=== PATIENT | female | born 1990 | race Caucasian/White ===

== ENCOUNTER → 2020-03-08 | Outpatient (CLI) | payer BC ==
--- NOTE | 2020-03-08 11:00 | Diagnostic Imaging Report ---
INDICATION: survey, patient TECHNIQUE: Multiple real-time grayscale images were obtained over the gravid uterus. COMPARISON: None FINDINGS: A single live intrauterine fetus seen measuring 21 weeks 1 day in size by composite measurements. The fetus is in cephalic presentation. Amniotic fluid index is 9.96 cm. Placenta is posterior and grade 1 with no evidence of previa. heart rate is 143 bpm. survey showed normal-appearing kidneys and bladder and stomach. Normal-appearing intracranial ventricles are seen. Three-vessel cord and cord insertion appear unremarkable. The spine appears unremarkable. Views of the nose and lips and four-chamber heart were suboptimal due to position. Maternal adnexa could not be visualized. There was no free fluid. Biometrical measurements are as follows: Biparietal 5.03 cm, age 21 weeks 2 days. Head circumference 18.04 cm, age 20 weeks 4 days. Abdominal circumference 16.49 cm, age 21 weeks 4 days. Femur length 3.39 cm, age 20 weeks 5 days. Sonographic estimate age: 21 weeks 1 days. Sonographic estimated date of delivery: 07/18/2020. Estimated Weight: 397 gm (+/- 58 gm). LMP percentile: 57%. heart rate: 143 beats per minute. number: 1 of 1. IMPRESSION: Single live intrauterine fetus measuring 21 weeks 1 day in size. survey showed no technical abnormalities with supplementation as above. Consider limited followup as clinically warranted. Dictated by: Dictated on workstation # [id number]
== END ==
LOC: RAD 09:47
PROVIDERS: ATTEND Obstetrics & Gynecology
DX: Z36.89 Encounter for other specified antenatal screening (principal); Z3A.21 21 weeks gestation of pregnancy
CPT/HCPCS: 76805

== ENCOUNTER → 2020-05-04 | Outpatient (CLI) | payer BC ==
--- NOTE | 2020-05-04 16:58 | Diagnostic Imaging Report ---
INDICATION: , incomplete earlier anatomic survey. TECHNIQUE: Multiple real-time grayscale images were obtained over the gravid uterus. COMPARISON: 03/08/2020. FINDINGS: Four-chamber heart and facial structures are well visualized and appear unremarkable. Cephalic positioning of the jean-baptiste viable IUP is redemonstrated. The placenta is posterior fundal with no abruption or previa. heart rate 134 bpm. Amniotic fluid volume normal. IMPRESSION: Successful completion of the prior limited anatomical survey. No abnormality identified. Dictated by: Dictated on workstation # [id number]
== END ==
LOC: RAD 11:35
PROVIDERS: ATTEND Nurse Practitioner Women's Health
DX: Z34.90 Encounter for supervision of normal pregnancy, unspecified, unspecified trimester (principal); Z3A.00 Weeks of gestation of pregnancy not specified
CPT/HCPCS: 76816

== ENCOUNTER → 2020-06-29 | Outpatient (CLI) | payer BC ==
--- NOTE | 2020-06-29 08:38 | Diagnostic Imaging Report ---
INDICATION: Gestational hypertension. FINDINGS: There is single live intrauterine fetus which is vertex. Fetus is active. breathing and motion was normal. Amniotic fluid index is normal at 11 cm. heart rate 133. IMPRESSION: Normal biophysical profile scoring 8 of potential 8 points by ultrasound. Dictated by: Dictated on workstation # [id number]
== END ==
LOC: RAD 07:50
PROVIDERS: ATTEND Nurse Practitioner Women's Health
DX: O13.9 Gestational [pregnancy-induced] hypertension without significant proteinuria, unspecified trimester (principal)
CPT/HCPCS: 76819

== ENCOUNTER → 2020-07-05 | Outpatient (CLI) | payer BC ==
--- NOTE | 2020-07-05 15:23 | Diagnostic Imaging Report ---
INDICATION: Gestational hypertension. TECHNIQUE: Multiple real-time grayscale images were obtained over the gravid uterus. COMPARISON: 06/29/2020. FINDINGS: There is a single live fetus in a cephalic presentation. heart rate was recorded 135 bpm. Placenta is posterior. Amniotic fluid index is 11.2 cm. Biophysical profile was performed with a score of 6/8. Two-point reduction was given for lack of breathing movements visualized. Biometrical measurements are as follows: Biparietal 8.74 cm, age 35 weeks 3 days. Head circumference 33.49 cm, age 38 weeks 3 days. Abdominal circumference 34.10 cm, age 38 weeks 1 days. Femur length 7.41 cm, age 38 weeks 0 days. Sonographic estimate age: 37 weeks 4 days. Sonographic estimated date of delivery: 07/22/2020. Estimated Weight: 3278 gm (+/- 479 gm). LMP percentile: 57%. heart rate: 135 beats per minute. number: 1 of 1. IMPRESSION: 1. Single live IUP approximately 37-38 weeks gestational age. 2. Biophysical profile score 6/8. Dictated by: Dictated on workstation # [id number]
== END ==
LOC: RAD 12:18
PROVIDERS: ATTEND Nurse Practitioner Women's Health
DX: O13.3 Gestational [pregnancy-induced] hypertension without significant proteinuria, third trimester (principal); Z3A.37 37 weeks gestation of pregnancy
CPT/HCPCS: 76805; 76819

== ENCOUNTER 2020-07-06 12:29 | Outpatient (CLI) | payer BC ==
--- NOTE | 2020-07-06 14:05 | NUR ---
TESSA GOMEZ presented to unit via from RADIOLOGY, FOR NST. EFHM and TOCO applied, VS taken. TESSA GOMEZ oriented to bed controls, call light, TV, heat, and A/C controls.
[2020-07-06 14:28] VITALS: BP 135/87
--- NOTE | 2020-07-06 14:35 | NUR ---
RN CALLS DR GHOSH WITH NST RESULT: REACTIVE, MODERATE VARIABILITY, NO DECELS OR VARIABLES. UC Q8 MIN WHICH THE PT DOES NOT REPORT FEELING. BPP WAS 6/8. BP 135/87 HR 75 TEMP 98.6F. FEELING GOOD MOVEMENT. NO COMPLAINTS. DR SANTILLAN STATES THAT PT MAY DC HOME AND TO FOLLOW UP ON THURSDAY WITH DR SIMON AT HER PREVIOUSLY SCHEDULED APPOINTMENT. THIS RN INFORMS PT AND IS DC TO HOME.
--- NOTE | 2020-07-06 14:38 | Diagnostic Imaging Report ---
INDICATION: Gestational hypertension. There is a single live fetus in a cephalic presentation. heart rate was recorded at 138 bpm. Amniotic fluid index is 11.9 cm. Biophysical profile score is 6 out of 8. A 2 point deduction was given for lack of breathing movements visualized. IMPRESSION: Biophysical profile score 6 out of 8. Dictated by: Dictated on workstation # [id number]
== END 2020-07-06 14:35 | disposition home or self-care (01) ==
LOC: RAD 12:29
PROVIDERS: ATTEND Nurse Practitioner Women's Health
DX: O13.3 Gestational [pregnancy-induced] hypertension without significant proteinuria, third trimester (principal); Z3A.00 Weeks of gestation of pregnancy not specified
CPT/HCPCS: 76819; 82570; 84156

== ENCOUNTER 2020-07-08 08:45 | Inpatient (IN) | payer BC ==
[~2020-07-08] VITALS: Ht 177.5 cm; Wt 97.0 kg
[2020-07-08] VITALS (17 sets, daily range): BP systolic 105–174; BP diastolic 59–110
--- NOTE | 2020-07-08 08:50 | NUR ---
TESSA GOMEZ presented to unit via amb from home, accompanied by s.o., with c/o LABOR. TESSA GOMEZ weighed, gowned, voided, and to bed. 0900 EFHM and TOCO applied, VS taken. TESSA GOMEZ oriented to bed controls, call light, TV, heat, and A/C controls.
[2020-07-08] MEDS ORDERED: D5 LR IV SOLUTION 1,000 ML IV ONE (09:07)
[2020-07-08] MEDS ORDERED: D5 LR IV SOLUTION 1,000 ML IV SCH (09:14)
[2020-07-08] MEDS ORDERED: OXYTOCIN PRE-MIX DRIP 500 ML IV ONE (09:25)
[2020-07-08] MEDS ORDERED: LIDOCAINE/EPI 2% 1:200,00 (XYLOCAINE) 10 ML VIAL ONE ×2 (09:25→09:43)
--- OUTSIDE RECORDS SUMMARY | 2020-07-08 10:05 | XMS REPORT | Continuity of Care Document ---
Author Organization Unknown Address Unknown Phone Unavailable Allergies There is no data. Medications There is no data. Problems Date Dx Coded Attending Type Code Diagnosis Diagnosed By 03/12/2020 SIMON DO, ALPESH C Ot Z36.8 9 ENCOUNTER FOR OTHER SPECIFIED 03/12/2020 SIMON DO, ALPESH C Ot Z3A.2 1 21 WEEKS GESTATION OF 03/14/2020 SIMON DO, ALPESH C Ot Z36.8 9 ENCOUNTER FOR OTHER SPECIFIED 03/14/2020 SIMON DO, ALPESH C Ot Z3A.2 1 21 WEEKS GESTATION OF 03/19/2020 SIMON DO, ALPESH C Ot Z36.8 9 ENCOUNTER FOR OTHER SPECIFIED 03/19/2020 SIMON DO, ALPESH C Ot Z3A.2 1 21 WEEKS GESTATION OF 03/20/2020 SIMON DO, ALPESH C Ot Z36.8 9 ENCOUNTER FOR OTHER SPECIFIED 03/20/2020 SIMON DO, ALPESH C Ot Z3A.2 1 21 WEEKS GESTATION OF 03/24/2020 SIMON DO, ALPESH C Ot Z36.8 9 ENCOUNTER FOR OTHER SPECIFIED 03/24/2020 SIMON DO, ALPESH C Ot Z3A.2 1 21 WEEKS GESTATION OF 05/09/2020 PAYTON WRIGHT SOFTWARE TEAM LEADER Ot Z34.90 ENCNTR FOR SUPRVSN OF NORMAL , 05/09/2020 PAYTON WRIGHT SOFTWARE TEAM LEADER Ot Z3A.00 WEEKS OF GESTATION OF NOT SPEC 05/26/2020 PAYTON WRIGHT SOFTWARE TEAM LEADER Ot Z34.90 ENCNTR FOR SUPRVSN OF NORMAL , 05/26/2020 PAYTON WRIGHT SOFTWARE TEAM LEADER Ot Z3A.00 WEEKS OF GESTATION OF NOT SPEC 06/29/2020 SIMON DO, ALPESH C Ot Z36.8 9 ENCOUNTER FOR OTHER SPECIFIED 06/29/2020 SIMON DO, ALPESH C Ot Z3A.2 1 21 WEEKS GESTATION OF 06/29/2020 PAYTON WRIGHT SOFTWARE TEAM LEADER Ot Z34.90 ENCNTR FOR SUPRVSN OF NORMAL , 06/29/2020 PAYTON WRIGHT SOFTWARE TEAM LEADER Ot Z3A.00 WEEKS OF GESTATION OF NOT SPEC 07/04/2020 PAYTON WRIGHT APRN Ot O13.9 GESTATIONAL HTN W/O SIGNIFICANT PROTEINU Procedures There is no data. Results Test Result Range Urine protein/creatinine mass ratio - 12:56 Urine protein measurement (mass/volume) 7 mg/dL 6-12 Urine creatinine measurement (mass/volume) 30 mg/d L 30-125 Urine protein/creatinine mass ratio 0.23 NRG Encounters ACCT No. Visit Date/Time Discharge Status Pt. Type Provider Facility Loc./Unit Complaint [id number] 07/06/2020 12:29:00 14:35:00 DIS Outpatient PAYTON WRIGHT APRN [facility] RAD GESTATIONAL HYP ERTENSION THIRD TRIMESTER [id number] 06/29/2020 07:50:00 23:59:59 CLS Outpatient PAYTON WRIGHT APRN [facility] RAD ,GESTAT IONAL HTN [id number] 05/04/2020 11:35:00 020 23:59:59 CLS Outpatient PAYTON WRIGHT APRN [facility] RAD REPEAT ANATOMY SCAN [id number] 03/08/2020 09:47:00 23:59:59 CLS Outpatient ALPESH SIMON DO [facility] RAD 17 WKS GESTATION [id number] 07/08/2020 09:07:[address] Inpatient REZA SANTILLAN MD [facility] LDRP LABOR [id number] 07/05/2020 12:18:[address] Outpatient PAYTON WRIGHT APRN [facility] RAD ,GESTATIONAL HYPERTE NSION.
[2020-07-08 10:41] LABS: BASOPHILS % (AUTO) 0 % (0-10); EOSINOPHILS # (AUTO) 0.3 10^3/uL (0.0-0.3); EOSINOPHILS % (AUTO) 2 % (0-10); HEMATOCRIT 38 % (35-52); HEMOGLOBIN 13.1 G/DL (11.5-16.0); LYMPHOCYTES # (AUTO) 1.9 X 10^3 (1.0-4.0); LYMPHOCYTES % (AUTO) 14 % (12-44); MEAN CORPUSCULAR HEMOGLOBIN 30 PG (25-34); MEAN CORPUSCULAR HGB CONC 35 G/DL (32-36); MEAN CORPUSCULAR VOLUME 88 FL (80-99); MEAN PLATELET VOLUME 10.7 FL (7.4-10.4); MONOCYTES # (AUTO) 0.9 X 10^3 (0.0-1.0); MONOCYTES % (AUTO) 7 % (0-12); NEUTROPHILS # (AUTO) 10.2 X 10^3 (1.8-7.8); NEUTROPHILS % (AUTO) 77 % (42-75); PLATELET COUNT 280 10^3/uL (130-400); RED CELL DISTRIBUTION WIDTH 13.2 % (10.0-14.5); WHITE BLOOD COUNT 13.3 10^3/uL (4.3-11.0)
[2020-07-08] MEDS ORDERED: WITCH HAZEL(TUCKS) 40 EA JAR ONE (10:58)
[2020-07-08] MEDS ORDERED: BENZOCAINE/MENTHOL (DERMOPLAST) 60 ML CAN TP ONE (10:58)
[2020-07-08] MEDS ORDERED: OXYTOCIN PRE-MIX DRIP 500 ML IV SCH (11:10)
--- NOTE | 2020-07-08 11:10 | History & Physical ---
History and Physical Date Seen by Provider: Jul 08, 2020 Time Seen by Provider: 11:08 This patient is a 30-year-old [address] white female patient of Dr. Summers. Dr. Ma is out of town and I'm covering. Patient presented in advanced labor at 8-9 cm. She is 38 weeks gestation. She had a GBS positive culture. She denies rupture membranes or bleeding but did note that she has some slightly pinkish discharge. She's had no problems with this other than PIH for which she is on labetalol. Allergies are none Medications are vitamins and labetalol Medical social and surgical histories are per the antepartum record of Dr. Ma HEENT exam is normal Neck is supple no lymphadenopathy no thyromegaly Abdomen is gravid soft nontender nondistended Extreme show no clubbing cyanosis. There is no Homans sign. Pelvic exam shows a cervix completely dilated 100 percent effaced +2 to +3 station vertex presentation with no membranes palpable. Laboratory Tests 07/08/20 09:10 Assessment and plan 38 week prima gravid patient presenting in advanced labor with delivery eminent. GBS positive culture but no time for antibiotics. Anticipate a vaginal delivery shortly. 38 week in labor Allergies and Home Medications Allergies Coded Allergies: No Known Drug Allergies (Unverified , 07/08/20) Patient Home Medication List Home Medication List Reviewed: Yes REZA SANTILLAN MD Jul 08, 2020 11:10
[2020-07-08] MEDS ORDERED: BENZOCAINE/MENTHOL (DERMOPLAST) 60 ML CAN TP PRN (11:15)
[2020-07-08] MEDS ORDERED: oxyCODONE/APAP 5/325MG (PERCOCET 5) TABLET PO PRN (11:15)
[2020-07-08] MEDS ORDERED: TETANUS,DIPTH,PERTUSS P/F (BOOSTRIX) 0.5 ML VIAL IM ONE (11:15)
[2020-07-08] MEDS ORDERED: MEASLES,MUMPS,RUBELLA 1 EA INJ SC ONE (11:15)
[2020-07-08] MEDS ORDERED: KETOROLAC 30 MG/ML VIAL IVP SCH (11:15)
[2020-07-08] MEDS ORDERED: ONDANSETRON 4 MG/2 ML (SDV) Z0FRAN IVP PRN (11:15)
[2020-07-08] MEDS ORDERED: WITCH HAZEL(TUCKS) 40 EA JAR TOP PRN (11:30)
[2020-07-08] MEDS ORDERED: DIBUCAINE (NUPERCAINAL) 1% OINT 30 GM TOP PRN (11:30)
[2020-07-08] MEDS ORDERED: LIDOCAINE/EPI 2% 1:200,00 (XYLOCAINE) 10 ML VIAL INJ ONE (11:30)
[2020-07-08] MEDS: IBUPROFEN 800 MG (MOTRIN) TAB PO SCH ×3 (11:59→23:09)
--- NOTE | 2020-07-08 13:45 | NUR ---
UP TO THE BATHROOM. VOIDED LARGE AMOUNT. AMBULATED WITHOUT PROBLEMS. PERICARE WITH PAD CHANGE. VAGINAL FLOW LT/MOD.
--- NOTE | 2020-07-08 14:00 | NUR ---
TO PP ROOM 310 VIA W/C IN STABLE CONDITION. ACC BY GREGORY MARTINEZ AND Edwin.PUSHING BABY IN THE CRIB. ASSISTED TO BED. ORIENTED TO SURROUNDINGS, CALL LIGHT, INFORMATION PAPERS, AND MENU.
--- NOTE | 2020-07-08 14:30 | NUR ---
ICE PACK TO PERINEUM.
--- NOTE | 2020-07-08 15:00 | NUR ---
DEMONSTRATED DIAPER CHANGE AND SWADDLE TO PARENTS.
--- NOTE | 2020-07-08 15:17 | OPERATIVE REPORT ---
DATE OF SERVICE: 07/08/2020 DELIVERY NOTE The patient delivered by term spontaneous vaginal delivery a viable male with Apgars of 8 and 9 at 1 and 5 minutes respectively, a time of 10:31 with cord blood pH that is pending and weight of 7 pounds 4 ounces. Delivery was accomplished over a midline episiotomy that was performed after the patient had been pushing for 45 minutes with the baby and she was unable to push the baby through the perineum. Her perineum was very thick and fibrotic. She requested episiotomy to accomplish the delivery, which was appropriate at this point because the baby's heart rate was dropping down to the 80s with every push and every contraction and taking some time to recover. Episiotomy was performed with some difficulty secondary to the patient's thick fibrotic perineal body. The delivery was then accomplished promptly. The infant was bulb suctioned on delivery of the head and again on completion of delivery. When the umbilical cord was relatively pulseless, it was doubly clamped, the father cut the cord, the baby was passed to mom's abdomen. Cord bloods were obtained. The placenta delivered manually. There was a very small lobe of placenta in which the umbilical cord had attached and then the bulk of the placenta was approximately 10 cm by velamentous placental vessels. The small lobe of the placenta delivered, and the bulk of the placenta did not want to release. The uterine cavity was manually explored. The placenta was fairly easily and delivered and then the uterine cavity was examined a final time to ensure no remaining placental tissue. There being none, the delivery of the placenta was complete. The placenta was sent to pathology for permanent section. The cervix, vagina, rectum, and perineum were examined and found intact, except for the midline episiotomy, which was repaired with a single suture of 3-0 Vicryl Rapide in the usual manner to good hemostasis and good reapproximation. The patient had had a pudendal placed as she was pushing as she could not tolerate the pain with the pudendal then the patient was able to be pushed quite effectively; however, again a pudendal was augmented for the repair of the episiotomy with local in the perineal body. Sponge and needle counts were correct at the completion of delivery and the repair. Estimated blood loss was around 300 mL. The patient tolerated the delivery and the repair well and remained in the LDR. The baby remained with the mom. Job ID: [id number] DocumentID: [id number] Dictated Date: 07/08/2020 11:00:29 Outlet Manager Date: 07/08/2020 15:17:10 Dictated By: REZA SANTILLAN MD
--- NOTE | 2020-07-08 16:00 | NUR ---
AMBULATING WITHOUT PROBLEMS. FF U/2. VAG FLOW LT/MOD RUBRA.
--- NOTE | 2020-07-08 17:00 | NUR ---
PT AND S.O. TO NURSERY R/T HAVING TO STAY AND HAVE TESTS R/T LOW SPO2 WHEN NURSE TOOK INFANT IN FOR BATH.
--- NOTE | 2020-07-08 19:00 | NUR ---
CONTINUES TO BE IN NURSERY. REMINDED PT AND S.O. THAT FOOD IS IN ROOM.
[2020-07-08] MEDS: DOCUSATE SODIUM 100 MG (COLACE) CAP PO SCH (23:05)
[2020-07-09 05:09] VITALS: BP 128/67
[2020-07-09] MEDS: IBUPROFEN 800 MG (MOTRIN) TAB PO SCH ×4 (05:10→23:27)
--- NOTE | 2020-07-09 07:34 | Progress Note ---
Standard Progress Note Progress Notes/Assess & Plan Date Seen by a Provider: Jul 09, 2020 Time Seen by a Provider: 07:33 Progress/Assessment & Plan This patient is without complaint. She is ambulating, voiding, tolerating oral intake well has good pain control. Vital Signs 07/08/20 07/09/20 10:26 05:09 Temp 37.0 Pulse 91 Resp 18 B/P (MAP) 128/67 (87) Pulse Ox 97 O2 Delivery Room Air O2 Flow Rate 15.00 Vital signs are stable. Patient is afebrile. Fundus is firm below the umbilicus and nontender. Extremities show no clubbing or cyanosis. There is no Homans sign. Assessment and plan day number 1 status post term spontaneous vaginal delivery at 38 weeks gestation area patient is doing well and will have routine convalescence care Final Diagnosis 38 week spontaneous vaginal delivery REZA SANTILLAN MD Jul 09, 2020 07:34
--- NOTE | 2020-07-09 07:36 | Discharge Inst-Surgical ---
Discharge Inst-Surgical Depart Medication/Instructions New, Converted or Re-Newed RX: RX on Chart Consults/Follow Up Patient Instructions: As directed Orders & Referrals Follow Up Appt: Call to make follow up appt. for patient in [address] Summers. Activity Per routine post vaginal delivery instructions. Please call in RX to patient pharmacy. Diet as tolerated Patient may shower or tub bathe as desired. Activity Activity as Tolerated: No Diet Discharge Diet: No Restrictions REZA SANTILLAN MD Jul 09, 2020 07:36
[2020-07-09] MEDS ORDERED: DCS100C PO (07:37)
[2020-07-09] MEDS ORDERED: IBUP-1780 PO (07:37)
[2020-07-09] MEDS ORDERED: OXYC1TAB87 PO (07:37)
--- NOTE | 2020-07-09 08:15 | NUR ---
pt to nsy to see and breastfeed. accompanied by .
[2020-07-09 08:17] VITALS: BP 113/72
--- NOTE | 2020-07-09 08:23 | NUR ---
Report received from Nas MODI RN
[2020-07-09] MEDS: DOCUSATE SODIUM 100 MG (COLACE) CAP PO SCH ×2 (09:39→22:24)
[2020-07-09 14:30] VITALS: BP 107/68
[2020-07-09 21:00] VITALS: BP 118/63
[2020-07-10 03:15] VITALS: BP 110/65
--- NOTE | 2020-07-10 07:33 | Progress Note ---
Standard Progress Note Progress Notes/Assess & Plan Date Seen by a Provider: Jul 10, 2020 Time Seen by a Provider: 07:31 Progress/Assessment & Plan This patient is without complaint. She is ambulating, voiding, tolerating oral intake well has good pain control. Vital Signs 07/08/20 07/09/20 10:26 05:09 Temp 37.0 Pulse 91 Resp 18 B/P (MAP) 128/67 (87) Pulse Ox 97 O2 Delivery Room Air O2 Flow Rate 15.00 Vital signs are stable. Patient is afebrile. Fundus is firm below the umbilicus and nontender. Extremities show no clubbing or cyanosis. There is no Homans sign. Assessment and plan day number 1 status post term spontaneous vaginal delivery at 38 weeks gestation area patient is doing well and will have routine convalescence care July 10, 2020 Patient is without. She is ambulating, voiding, tolerating oral intake well has good pain control. Vital Signs Date Time Temp Pulse Resp B/P (MAP) Pulse Ox O2 Delivery O2 Flow Rate FiO2 07/09/20 21:00 36.7 75 18 118/63 (81) 98 Room Air 07/09/20 14:30 36.5 73 18 107/68 (81) 97 Room Air 07/09/20 08:17 36.3 76 18 113/72 (86) 99 Room Air Vital signs are stable. Patient is afebrile. The abdomen is benign. Fundus is firm below the umbilicus and nontender. Extremities show no clubbing or cyanosis. There is no Homans sign. Assessment and plan day number 2 status post term spontaneous vaginal delivery at 38 weeks gestation. Patient will be discharged but will room in if baby is not ready to discharge Final Diagnosis 38 week spontaneous vaginal delivery REZA SANTILLAN MD Jul 10, 2020 07:33
--- NOTE | 2020-07-10 08:00 | NUR ---
Mom and dad in nursery most of morning to see their .
[2020-07-10 10:40] VITALS: BP 123/76
[2020-07-10] MEDS: DOCUSATE SODIUM 100 MG (COLACE) CAP PO SCH (10:45)
[2020-07-10] MEDS: IBUPROFEN 800 MG (MOTRIN) TAB PO SCH (10:46)
[2020-07-10 15:05] VITALS: BP 123/76
--- NOTE | 2020-07-10 15:45 | NUR ---
Baby now in room with parents. instructions given - pt verbalized understanding. to remain hospitalized on IV antibiotics. Mom to be boarder. Verbalized understanding of responsibilities of boarder pt.
== END 2020-07-10 16:14 | disposition home or self-care (01) | DRG 807 ==
LOC: LDRP 08:45 → WSo 08:45 → LDRP 09:07 → WSo 09:07 → LDRP 14:25
PROVIDERS: ADMIT Obstetrics & Gynecology; ATTEND Obstetrics & Gynecology
PROC: 10E0XZZ Delivery of Products of Conception, External Approach (ICD-10-PCS; principal; 2020-07-08)
PROC: 10D17Z9 Manual Extraction of Products of Conception, Retained, Via Natural or Artificial Opening (ICD-10-PCS; 2020-07-08)
PROC: 0W8NXZZ Division of Female Perineum, External Approach (ICD-10-PCS; 2020-07-08)
DX: O13.4 Gestational [pregnancy-induced] hypertension without significant proteinuria, complicating childbirth (principal); Z37.0 Single live birth; O73.0 Retained placenta without hemorrhage; O99.824 Streptococcus B carrier state complicating childbirth; Z3A.38 38 weeks gestation of pregnancy; Z23 Encounter for immunization
CPT/HCPCS: 36415; 85025; 86850; 86900; 86901; 90707; 99212

== ENCOUNTER → 2020-08-22 | Outpatient (CLI) | payer BC ==
[~2020-08-22] MED LIST: DCS100C PO; IBUP-1780 PO; OXYC1TAB87 PO
--- NOTE | 2020-08-22 10:01 | Diagnostic Imaging Report ---
INDICATION: Left breast mass. Patient is breast-feeding. TECHNIQUE/FINDINGS: Sonographic interrogation of the area of palpable abnormality in the left breast was performed. This corresponds to the 2:30 location 5 cm from the nipple. There is a circumscribed mass at this location measuring 2.3 x 1.3 x 2.5 cm. This does show mixed echogenicity with areas of cyst formation. There are internal septa which do show some vascularity. The lesion does demonstrate posterior acoustic enhancement. The lesion is wider than it is tall. No other abnormalities are seen. IMPRESSION: Complex mixed solid and cystic mass at the 2:30 location of the left breast 5 cm from the nipple corresponding to the palpable abnormality. This does demonstrate posterior acoustic enhancement and is likely benign. This may represent a lactating adenoma or other benign nodule. Even so, close interval sonographic followup is recommended with repeat ultrasound in 3 months to demonstrate continued stability. ACR BI-RADS Category 3: Probably benign findings. Dictated by: Dictated on workstation # [id number]
== END ==
LOC: RAD 09:00
PROVIDERS: ATTEND Obstetrics & Gynecology
DX: N63.20 Unspecified lump in the left breast, unspecified quadrant (principal)
CPT/HCPCS: 76642

== ENCOUNTER → 2022-05-18 | Outpatient (CLI) | payer BC ==
[~2022-05-18] MED LIST changes: -DCS100C PO; +DOCU-239 PO
== END ==
LOC: LAB 08:22
PROVIDERS: ATTEND Obstetrics & Gynecology
DX: Z34.81 Encounter for supervision of other normal pregnancy, first trimester (principal); Z3A.00 Weeks of gestation of pregnancy not specified
CPT/HCPCS: 36415; 84702

== ENCOUNTER 2022-11-05 10:33 | Outpatient (CLI) | payer BC ==
[~2022-11-05] VITALS: Ht 177.8 cm; Wt 104.0 kg
[2022-11-05 10:33] VITALS: BP 133/85
[2022-11-05 10:45] VITALS: BP 125/79
[2022-11-05 10:48] VITALS: BP 133/85
[2022-11-05 10:51] LABS: CLARITY,URINE CLEAR; COLOR,URINE YELLOW; GLUCOSE, URINE (UA) TRACE (NEGATIVE); KETONES,URINE TRACE (NEGATIVE); LEUKOCYTE ESTERASE ,URINE NEGATIVE (NEGATIVE); NITRITE,URINE NEGATIVE (NEGATIVE); PROTEIN,URINE TRACE (NEGATIVE)
[2022-11-05 11:00] VITALS: BP 137/83
[2022-11-05 11:05] VITALS: BP 125/76
[2022-11-05 11:07] LABS: BACTERIA,URINE FEW /HPF; BILIRUBIN,URINE 1+ (NEGATIVE); RBC,URINE RARE /HPF
[2022-11-05 11:15] VITALS: BP 118/74
[2022-11-05] MEDS ORDERED: ONDANSETRON 4 MG/2 ML (SDV) Z0FRAN IVP PRN (11:30)
[2022-11-05] MEDS ORDERED: LOPERAMIDE 2 MG (IMODIUM) TABLET PO NR (11:30)
[2022-11-05] MEDS: D5 LR IV SOLUTION 1,000 ML IV SCH ×2 (11:40→12:44)
[2022-11-05] MEDS ORDERED: PREN1TAB19 PO ×2 (14:36)
--- NOTE | 2022-11-06 09:56 | Physician Query-Final Dx ---
TI,11/06/22 0956: Clinic Account Progress/Dx Physician Query: Please give diagnosis Please include # weeks gestation Date of Service Nov 05, 2022 at 10:33 REZA SANTILLAN MD 11/06/22 1333: Clinic Account Progress/Dx DIAGNOSIS: Diagnosis 29 weeks with hyperemesis TI,NovNov 06, 2022 09:56 ERZA SANTILLAN MD Nov 06, 2022 13:33
== END 2022-11-05 14:50 | disposition home or self-care (01) ==
LOC: LDRP 10:33 → WSo 10:33
PROVIDERS: ATTEND Obstetrics & Gynecology
DX: O21.2 Late vomiting of pregnancy (principal); Z3A.29 29 weeks gestation of pregnancy
CPT/HCPCS: 81000; 87077; 87088; 96360; 96361; 99213

== ENCOUNTER → 2022-11-20 | Outpatient (CLI) | payer BC ==
[~2022-11-20] MED LIST changes: +PREN1TAB19 PO
== END ==
LOC: LABNPT 12:50
PROVIDERS: ATTEND Obstetrics & Gynecology
DX: O13.9 Gestational [pregnancy-induced] hypertension without significant proteinuria, unspecified trimester (principal); Z3A.00 Weeks of gestation of pregnancy not specified
CPT/HCPCS: 82570; 84156

== ENCOUNTER → 2022-12-02 | Outpatient (CLI) | payer BC | LOC: LABNPT 08:48 | PROVIDERS: ATTEND Obstetrics & Gynecology | DX: R80.9 Proteinuria, unspecified (principal) | CPT/HCPCS: 82570; 84156 ==

== ENCOUNTER 2022-12-20 03:01 | Inpatient (IN) | payer BC ==
[2022-12-20] VITALS (30 sets, daily range): BP systolic 113–157; BP diastolic 61–90
[~2022-12-20] VITALS: Ht 177.8 cm; Wt 107.7 kg
[2022-12-20 03:32] LABS: BILIRUBIN,URINE NEGATIVE (NEGATIVE); CLARITY,URINE CLOUDY; COLOR,URINE YELLOW; GLUCOSE, URINE (UA) NEGATIVE (NEGATIVE); KETONES,URINE NEGATIVE (NEGATIVE); LEUKOCYTE ESTERASE ,URINE 1+ (NEGATIVE); NITRITE,URINE NEGATIVE (NEGATIVE); PROTEIN,URINE NEGATIVE (NEGATIVE)
[2022-12-20] MEDS ORDERED: AMPICILLIN FOR IV USE 2,000 MG in NS (IVPB) 50 ML IV SCH (03:37)
[2022-12-20] MEDS ORDERED: D5 LR IV SOLUTION 1,000 ML IV ONE (03:41)
[2022-12-20] MEDS ORDERED: AMPICILLIN 2,000 MG/14.8 ML (IV USE) ONE (03:41)
[2022-12-20] MEDS ORDERED: WATER (STERILE) FOR INJECTION 20 ML ONE (03:41)
[2022-12-20 03:43] LABS: BACTERIA,URINE TRACE /HPF; RBC,URINE 0-2 /HPF; WBC,URINE 0-2 /HPF
[2022-12-20] MEDS ORDERED: MINERAL OIL 30 ML UDC TOP PRN (03:45)
[2022-12-20] MEDS: D5 LR IV SOLUTION 1,000 ML IV SCH ×2 (03:47→16:44)
[2022-12-20 03:48] LABS: BASOPHILS % (AUTO) 0 % (0-10); EOSINOPHILS # (AUTO) 0.4 10^3/uL (0.0-0.3); EOSINOPHILS % (AUTO) 4 % (0-10); HEMATOCRIT 36 % (35-52); HEMOGLOBIN 12.4 g/dL (11.5-16.0); LYMPHOCYTES # (AUTO) 2.2 10^3/uL (1.0-4.0); LYMPHOCYTES % (AUTO) 22 % (12-44); MEAN CORPUSCULAR HEMOGLOBIN 29 pg (25-34); MEAN CORPUSCULAR HGB CONC 34 g/dL (32-36); MEAN CORPUSCULAR VOLUME 84 fL (80-99); MEAN PLATELET VOLUME 10.3 fL (9.0-12.2); MONOCYTES # (AUTO) 0.7 10^3/uL (0.0-1.0); MONOCYTES % (AUTO) 7 % (0-12); NEUTROPHILS # (AUTO) 6.7 10^3/uL (1.8-7.8); NEUTROPHILS % (AUTO) 68 % (42-75); PLATELET COUNT 213 10^3/uL (130-400)
[2022-12-20] MEDS ORDERED: OXYTOCIN PRE-MIX DRIP 500 ML IV ONE ×2 (04:00→07:16)
[2022-12-20] MEDS ORDERED: LIDOCAINE 1% INJ 20 ML VIAL INJ ONE (04:30)
--- NOTE | 2022-12-20 05:06 | History & Physical ---
History and Physical Date Seen by Provider: Dec 20, 2022 Time Seen by Provider: 05:03 This patient is a 32-year-old 1 female who presents at 36+ weeks gestation With complaint of rupture membranes and also with advanced cervical dilation. Her GBS culture was positive after 35 weeks gestation.She is having occasional contractions. She has had no other problems with this . Allergies are none Medications are vitamins Medical social and surgical histories are per the antepartum record HEENT exam is normal Neck is supple no lymphadenopathy no thyromegaly Abdomen is gravid soft nontender nondistended Extremities show no clubbing or cyanosis. There is no Homans' sign. Pelvic exam per the admitting labor and delivery nurse shows a cervix now 8 cm dilated 90+ percent effaced 0 station vertex presentation with nitrazine positive test Vital Signs Date Time Temp Pulse Resp B/P (MAP) Pulse Ox O2 Delivery O2 Flow Rate FiO2 12/20/22 04:26 37.5 92 16 98 Room Air 12/20/22 04:15 85 16 144/84 (104) Room Air Laboratory Tests Test 12/20/22 03:13 12/20/22 03:20 12/20/22 03:35 Range/Units Urine Color YELLOW Urine Clarity CLOUDY Urine pH 6.0 5-9 Urine Specific [place] 1.025 H 1.016-1.022 Urine Protein NEGATIVE NEGATIVE Urine Glucose (UA) NEGATIVE NEGATIVE Urine Ketones NEGATIVE NEGATIVE Urine Nitrite NEGATIVE NEGATIVE Urine Bilirubin NEGATIVE NEGATIVE Urine Urobilinogen 0.2 < = 1.0 MG/DL Urine Leukocyte Esterase 1+ H NEGATIVE Urine RBC (Auto) TRACE-I H NEGATIVE Urine RBC 0-2 /HPF Urine WBC 0-2 /HPF Urine Crystals NONE /LPF Urine Bacteria TRACE /HPF Urine Casts NONE /LPF Urine Mucus NEGATIVE /LPF Urine Culture Indicated YES Membranes Rupture POSITIVE White Blood Count 10.0 4.3-11.0 10^3/uL Red Blood Count 4.32 3.80-5.11 10^6/uL Hemoglobin 12.4 11.5-16.0 g/dL Hematocrit 36 35-52 % Mean Corpuscular Volume 84 80-99 fL Mean Corpuscular Hemoglobin 29 25-34 pg Mean Corpuscular Hemoglobin Concent 34 32-36 g/dL Red Cell Distribution Width 12.9 10.0-14.5 % Platelet Count 213 130-400 10^3/uL Mean Platelet Volume 10.3 9.0-12.2 fL Immature Granulocyte % (Auto) 1 % Neutrophils (%) (Auto) 68 42-75 % Lymphocytes (%) (Auto) 22 12-44 % Monocytes (%) (Auto) 7 0-12 % Eosinophils (%) (Auto) 4 0-10 % Basophils (%) (Auto) 0 0-10 % Neutrophils # (Auto) 6.7 1.8-7.8 10^3/uL Lymphocytes # (Auto) 2.2 1.0-4.0 10^3/uL Monocytes # (Auto) 0.7 0.0-1.0 10^3/uL Eosinophils # (Auto) 0.4 H 0.0-0.3 10^3/uL Basophils # (Auto) 0.0 0.0-0.1 10^3/uL Immature Granulocyte # (Auto) 0.1 0.0-0.1 10^3/uL Assessment and plan 36+ weeks gestation with PP ROM and labor. GBS culture was positive patient has been started on ampicillin. We will manage expectantlyAnd anticipated vaginal delivery 36 weeks with P PROM and labor Allergies and Home Medications Allergies Coded Allergies: No Known Drug Allergies (Unverified , 07/08/20) Patient Home Medication List Home Medication List Reviewed: Yes Vit/Iron Fumarate/FA ( Vitamins Tablet) 28 Mg Iron-800 Mcg Tablet, 1 EACH PO DAILY, (Reported) Entered as Reported by: TESSA GRIGGS on 11/05/22 2196 Last Action: Reviewed REZA SANTILLAN MD Dec 20, 2022 05:06
[2022-12-20] MEDS ORDERED: DOCU-143 PO (05:12)
[2022-12-20] MEDS ORDERED: IBUP-1780 PO (05:12)
[2022-12-20] MEDS ORDERED: OXYC-199 PO (05:12)
--- NOTE | 2022-12-20 05:13 | Discharge Inst-Surgical ---
Discharge Inst-Surgical Depart Medication/Instructions New, Converted or Re-Newed RX: Other Consults/Follow Up Orders & Referrals Follow Up Appt: Call to make follow up appt. for patient in 6 weeks. Activity Per routine post vaginal delivery instructions. Please call in RX to patient pharmacy. Diet as tolerated Patient may shower or tub bathe as desired. Activity Activity as Tolerated: No Diet Discharge Diet: No Restrictions REZA SANTILLAN MD Dec 20, 2022 05:13
[2022-12-20] MEDS ORDERED: FLU QUADRIvalent (6 months+) 60 mcg/0.5 ml 2022-23 (Fluzone) IM ONE (07:30)
[2022-12-20] MEDS: AMPICILLIN FOR IV USE 1,000 MG in NS (IVPB) 50 ML IV SCH (07:36)
[2022-12-20] MEDS ORDERED: BENZOCAINE/MENTHOL (DERMOPLAST) 56 ML CAN TP PRN (11:15)
[2022-12-20] MEDS ORDERED: oxyCODONE/APAP 5/325MG (PERCOCET 5) TABLET PO PRN (11:15)
[2022-12-20] MEDS ORDERED: ONDANSETRON 4 MG/2 ML (SDV) Z0FRAN IVP PRN (11:15)
[2022-12-20] MEDS ORDERED: OXYTOCIN PRE-MIX DRIP 500 ML IV SCH (11:15)
[2022-12-20] MEDS ORDERED: IBUPROFEN 800 MG (MOTRIN) TAB PO SCH (11:15)
[2022-12-20] MEDS: KETOROLAC 30 MG/ML VIAL IV SCH ×2 (12:21→18:33)
--- NOTE | 2022-12-20 13:35 | OPERATIVE REPORT ---
DATE OF SERVICE: 12/20/2022 DELIVERY NOTE DESCRIPTION OF PROCEDURE: The patient delivered by spontaneous vaginal delivery of viable male with Apgars of 9 and 9 at 1 and 5 minutes respectively, weight of 7 pounds 7 ounces. time of 08:18 and cord blood pH of 7.33. The was delivered over a second-degree perineal laceration under local analgesia. The was bulb suctioned on delivery of the head and again on completion of delivery. Umbilical cord when pulseless was doubly clamped. Father cut the cord of the baby, was passed to mom's abdomen. Dr. Sanchez was in attendance for delivery due to prematurity. Cord bloods were obtained and the placenta delivered spontaneously [place]. It was multilobular [place] placenta with a 3-vessel cord. It was sent to pathology for permanent section. It appeared that there may have been like a 5% abruption. The cervix, vagina, rectum and perineum were examined and found to be intact except for the second-degree perineal laceration. It was repaired with a single suture of 3-0 Vicryl Rapide in the usual manner to good hemostasis and good reapproximation. Sponge and needle counts were correct on completion of the procedure. Blood loss was around 250 mL. The patient tolerated delivery well and remained in the LDR for recovery. The baby remained with the mom. Job ID: [id number] DocumentID: [id number] Dictated Date: 12/20/2022 11:24:11 Race Board Attendant Date: 12/20/2022 13:33:00 Dictated By: REZA SANTILLAN MD
[2022-12-20] MEDS: DOCUSATE SODIUM 100 MG (COLACE) CAP PO SCH (20:31)
[2022-12-21] MEDS: KETOROLAC 30 MG/ML VIAL IV SCH ×2 (00:07→06:00)
[2022-12-21 00:12] VITALS: BP 121/64
[2022-12-21 04:04] VITALS: BP 131/65
[2022-12-21 08:00] VITALS: BP 119/69
--- NOTE | 2022-12-21 10:55 | Progress Note ---
Standard Progress Note Progress Notes/Assess & Plan Date Seen by a Provider: Dec 21, 2022 Time Seen by a Provider: 10:54 Progress/Assessment & Plan This patient is without complaint. She is ambulating, voiding, tolerating oral intake well and has good pain control. Vital Signs Date Time Temp Pulse Resp B/P (MAP) Pulse Ox O2 Delivery O2 Flow Rate FiO2 12/21/22 08:00 36.3 69 18 119/69 (86) Room Air 12/21/22 04:04 37.0 77 16 131/65 (87) 97 Room Air 12/21/22 00:12 36.5 64 16 121/64 (83) 96 Room Air 12/20/22 20:33 36.3 76 16 130/69 (89) 97 Room Air 12/20/22 16:44 36.7 77 18 128/77 (94) 97 Room Air 12/20/22 12:23 36.8 63 18 124/73 (90) 97 Room Air I & O 12/21/22 07:00 Intake Total 1500 ml Balance 1500 ml Vital signs are stable. Patient is afebrile. The fundus is firm below the umbilicus and nontender. Extremities show no clubbing cyanosis. There is no Homans' sign. Assessment and plan Post day #1 status post spontaneous vaginal delivery doing well. Plan for routine convalescent care today with likely discharge home tomorrow Final Diagnosis 36-week spontaneous vaginal REZA SANTILLAN MD Dec 21, 2022 10:55
[2022-12-21] MEDS ORDERED: OXYC1TAB87 PO (10:56)
[2022-12-21] MEDS ORDERED: IBUP-1780 PO (10:56)
[2022-12-21] MEDS ORDERED: DOCU100C37 PO (10:56)
[2022-12-21] MEDS: IBUPROFEN 800 MG (MOTRIN) TAB PO SCH ×2 (12:01→17:46)
[2022-12-21] MEDS: DOCUSATE SODIUM 100 MG (COLACE) CAP PO SCH ×2 (12:01→20:54)
[2022-12-21 12:02] VITALS: BP 119/66
[2022-12-21 17:46] VITALS: BP 122/73
[2022-12-21 20:50] VITALS: BP 120/72
[2022-12-22] MEDS: IBUPROFEN 800 MG (MOTRIN) TAB PO SCH ×3 (00:47→11:38)
[2022-12-22 03:01] VITALS: BP 131/63
[2022-12-22] MEDS: D5 LR IV SOLUTION 1,000 ML IV SCH (07:54)
[2022-12-22] MEDS: AMPICILLIN FOR IV USE 1,000 MG in NS (IVPB) 50 ML IV SCH ×2 (07:55→10:25)
[2022-12-22 09:07] VITALS: BP 120/65
[2022-12-22] MEDS: DOCUSATE SODIUM 100 MG (COLACE) CAP PO SCH (09:09)
== END 2022-12-22 13:20 | disposition home or self-care (01) | DRG 805 ==
LOC: LDRP 03:01 → WSo 03:01 → LDRP 03:35
PROVIDERS: ADMIT Obstetrics & Gynecology; ATTEND Obstetrics & Gynecology
PROC: 10E0XZZ Delivery of Products of Conception, External Approach (ICD-10-PCS; principal; 2022-12-20)
PROC: 0KQM0ZZ Repair Perineum Muscle, Open Approach (ICD-10-PCS; 2022-12-20)
DX: O60.14X0 Preterm labor third trimester with preterm delivery third trimester, not applicable or unspecified (principal); O45.93 Premature separation of placenta, unspecified, third trimester; Z37.0 Single live birth; O42.013 Preterm premature rupture of membranes, onset of labor within 24 hours of rupture, third trimester; Z3A.36 36 weeks gestation of pregnancy; O99.824 Streptococcus B carrier state complicating childbirth; O70.1 Second degree perineal laceration during delivery; O43.193 Other malformation of placenta, third trimester; Z23 Encounter for immunization
CPT/HCPCS: 36415; 81000; 84112; 85025; 86780; 86850; 86900; 86901; 87077; 87088; 90686; 99212